=== PATIENT | male | born 1980 | race African-American/Black ===

== ENCOUNTER 2017-05-17 18:54 | Emergency (ER) | payer SELFPAY ==
[~2017-05-17] VITALS: Ht 185.4 cm; Wt 122.0 kg
[2017-05-17 19:14] VITALS: BP 153/92; PULSE 62; RESP 18; TEMP 97; O2SAT 97
--- NOTE | 2017-05-17 21:26 | PD ---
HPI Chief Complaint: Medical Clearance Time Seen by Provider: 21:22 Travel History International Travel<30 days: No Contact w/Intl Traveler<30days: No Traveled to known affect area: No History of Present Illness HPI 36-year-old male presents emergency department for evaluation of an episode of nausea and dizziness yesterday. Patient denies any symptoms today. He reports he became nauseous and dizzy after being out in the heat picking berries yesterday afternoon. He reports the symptoms resolved after going inside into the air conditioned home. He did not go to work today because he felt he " needed to rest". He presents emergency department requesting a note to return to work tomorrow. He is asymptomatic and reports no symptoms to emergency department. He denies headache, visual changes, chest pain, palpitations, shortness of breath, abdominal pain, nausea vomiting or diarrhea. PFSH Past Medical History Medical History: Denies Significant Hx Diminished Hearing: No Influenza Vaccination: No ?: Not Social History Alcohol Use: No Tobacco Use: No Substance Use: No Allergies-Medications (Allergen,Severity, Reaction): Coded Allergies: No Known Allergies (Unverified , 05/17/17) Reported Meds & Prescriptions Reported Meds & Active Scripts Active No Active Prescriptions or Reported Medications Review of Systems Except as stated in HPI: all other systems reviewed are Neg Physical Exam Narrative GENERAL: Well-nourished, well-developed patient. SKIN: Focused skin assessment warm/dry. HEAD: Normocephalic. EYES: No scleral icterus. No injection or drainage. NECK: Supple, trachea midline. No JVD or lymphadenopathy. CARDIOVASCULAR: Regular rate and rhythm without murmurs, gallops, or rubs. RESPIRATORY: Breath sounds equal bilaterally. No accessory muscle use. GASTROINTESTINAL: Abdomen soft, non-tender, nondistended. MUSCULOSKELETAL: No cyanosis, or edema. BACK: Nontender without obvious deformity. No CVA tenderness. Data Data Last Documented VS Vital Signs Date Time Temp Pulse Resp B/P (MAP) Pulse Ox O2 Delivery O2 Flow Rate FiO2 05/17/17 19:14 97.0 62 18 153/92 (112) 97 MDM Medical Decision Making Medical Screen Exam Complete: Yes Emergency Medical Condition: Yes Differential Diagnosis Medical screening exam, nausea, dizziness Narrative Course 36-year-old male presents emergency department for evaluation of nausea and dizziness yesterday. Patient denies any symptoms today. He reports he became nauseous and dizzy after being out in the heat picking berries yesterday afternoon. He did not go to work today because he felt he "needed to rest". He presents emergency department requesting a note to return to work tomorrow. He is asymptomatic and reports no symptoms to emergency department. His physical exam is benign. Diagnosis Primary Impression: Nausea Referrals: [facility] Departure Forms: Tests/Procedures, Work Release Enter return to work date: May 18, 2017 Scripts No Active Prescriptions or Reported Meds Disposition: 01 DISCHARGE HOME Condition: Stable Haley Parisi May 17, 2017 21:26
== END 2017-05-17 21:36 | disposition home or self-care (01) ==
LOC: PHED 18:54 → PHEFT 21:36
DX: R11.0 Nausea (principal); R42 Dizziness and giddiness
CPT/HCPCS: 99281